=== PATIENT | male | born 1950 | race Caucasian/White ===

== ENCOUNTER 2020-04-29 06:12 | Outpatient (REF) | payer BC, SELFPAY ==
[2020-04-29 06:33] LABS: COVID-19 Test Negative (Negative)
== END 2020-04-29 06:13 | disposition home or self-care (01) ==
LOC: HO.LAB 06:12
PROVIDERS: PCP Internal Medicine; Visit Provider Internal Medicine
DX: Z20.828 Contact with and (suspected) exposure to other viral communicable diseases (principal)
CPT/HCPCS: 87635

== ENCOUNTER 2020-07-20 11:52 | Outpatient (REF) | payer BC, SELFPAY | END 2020-07-20 11:53 | disposition home or self-care (01) | LOC: HO.10HDL 11:52 | PROVIDERS: Visit Provider Internal Medicine | DX: N39.0 Urinary tract infection, site not specified (principal) | CPT/HCPCS: 87086 ==